=== PATIENT | male | born 1980 | race Caucasian/White ===

== ENCOUNTER 2020-10-31 15:51 | Emergency (ER) | payer OTHER ==
[~2020-10-31] VITALS: Ht 195.6 cm; Wt 122.5 kg
[2020-10-31 18:07] VITALS: BP 124/98
== END 2020-10-31 18:07 | disposition home or self-care (01) ==
LOC: M.ERS 15:51
DX: S61.212A Laceration without foreign body of right middle finger without damage to nail, initial encounter (principal); E11.9 Type 2 diabetes mellitus without complications; Z91.018 Allergy to other foods; W26.8XXA Contact with other sharp object(s), not elsewhere classified, initial encounter; Y93.89 Activity, other specified; Y92.89 Other specified places as the place of occurrence of the external cause; Y99.8 Other external cause status